=== PATIENT | female | born 1950 | race Caucasian/White ===

== ENCOUNTER 2016-11-16 14:29 | Emergency (ER) | payer MEDICARE | END 2016-11-16 16:43 | disposition home or self-care (01) | LOC: ER 14:29 | DX: R10.30 Lower abdominal pain, unspecified (principal); K62.5 Hemorrhage of anus and rectum; I10 Essential (primary) hypertension; F17.210 Nicotine dependence, cigarettes, uncomplicated; Z90.710 Acquired absence of both cervix and uterus; Z88.0 Allergy status to penicillin; Z79.899 Other long term (current) drug therapy | CPT/HCPCS: 36415 ==